=== PATIENT | male | born 2000 | race Caucasian/White ===

== ENCOUNTER → 2020-07-05 | Emergency (ER) | payer SELFPAY ==
--- NOTE | 2020-07-05 21:15 | NUR ---
patient left without being seen
--- NOTE | 2020-07-05 21:21 | Emergency Room Report ---
Medical Decision Making ER Course Patient left after being registered. Patient was never triaged or seen. Disposition: LEFT W/OUT BEING SEEN Tracy Gutierrez M.D. Jul 05, 2020 21:21
== END | disposition left against medical advice (07) ==
LOC: EMR 21:15
DX: Z53.21 Procedure and treatment not carried out due to patient leaving prior to being seen by health care provider (principal)